=== PATIENT | male | born 1940 | race Caucasian/White ===

== ENCOUNTER 2018-03-06 08:50 | Emergency (ER) | payer OTHER, MEDICARE ==
[~2018-03-06] VITALS: Ht 182.9 cm; Wt 81.7 kg
[2018-03-06] MEDS ORDERED: CARDURA2 MG PO (09:17)
[2018-03-06] MEDS ORDERED: NORVASC5 MG PO (09:18)
[2018-03-06] MEDS ORDERED: HYDROCHLOROTHIA25 M2 PO (09:18)
[2018-03-06] MEDS ORDERED: PRINIVIL20 MG PO (09:18)
[2018-03-06] MEDS ORDERED: ASPIRIN325 PO (09:19)
[2018-03-06] MEDS ORDERED: VITAMIN D35000 UNI1 PO (09:19)
[2018-03-06] MEDS ORDERED: AVODART0.5 MG PO (09:20)
[2018-03-06] MEDS ORDERED: GARLIPURE600 MG PO (09:20)
[2018-03-06] MEDS ORDERED: TRAZODONE HCL50 MG PO (10:37)
[2018-03-06 11:02] VITALS: BP 137/66
== END 2018-03-06 11:03 | disposition home or self-care (01) ==
LOC: ER 08:50
DX: G47.00 Insomnia, unspecified (principal)

== ENCOUNTER 2018-03-13 07:09 | Emergency (ER) | payer OTHER, MEDICARE ==
[~2018-03-13] VITALS: Ht 182.9 cm; Wt 81.7 kg
--- NOTE | ~2018-03-13 | EKG ---
[place] [address] [facility] [place] [address] ELECTROCARDIOGRAM REPORT Name: ADOLPH SANCHEZ Room #: REG [facility] TE[facility]ACHAPIDilipDilip#: [id number] Admission: 03/13/18 Attend Phys: Discharge: Date of : 44 Report #: [id number] THIS REPORT FOR: //name// [facility] ED Test Date: 2018-03-13 Test Time: 07:35:49 Pat Name: ADOLPH SANCHEZ Department: Room: Gender: Customer Assistance Representative: KF : 1940 Requested By: Kina Fung Order Number: [id number] MD: Mark Dhaliwal Measurements Intervals O'Brien Rate: 68 P: OK: QRS: -32 QRSD: 149 T: 98 QT: 450 QTc: 479 Interpretive Statements Sinus rhythm with first-degree AV block Left bundle branch block No previous ECG available for comparison Electronically Signed On 03-13-2018 11:51:01 CDT by Mark Dhaliwal [email or web address] <ELECTRONICALLY SIGNED> By: Mark Dhaliwal MD, [facility] 03/13/18 1151 [id number] Mark Dhaliwal MD, FACC /EPI
[~2018-03-13 07:09] MED LIST: ASPIRIN325 PO; AVODART0.5 MG PO; CARDURA2 MG PO; GARLIPURE600 MG PO; HYDROCHLOROTHIA25 M2 PO; NORVASC5 MG PO; PRINIVIL20 MG PO; TRAZODONE HCL50 MG PO; VITAMIN D35000 UNI1 PO
[2018-03-13 07:44] LABS: ABSOLUTE NEUTROPHILS 6.9 thou/uL (1.4-8.2); BASOPHILS 0.6 % (0.0-2.0); EOSINOPHILS 0.6 % (0.0-3.0); HEMATOCRIT 38.2 % (42.0-52.0); HEMOGLOBIN 13.3 gm/dL (14.0-18.0); LYMPHOCYTES 11.7 % (24.0-44.0); MCH 31.8 pg (26.0-34.0); MCHC 34.8 g/dL (28.0-37.0); MCV 91.2 fL (80.0-100.0); MONOCYTES 5.6 % (1.0-8.0); PLATELET COUNT 175 thou/uL (150-400); POLYS 81.5 % (36.0-66.0); RBC 4.19 mil/uL (4.50-6.00); RDW 13.5 % (10.5-14.5); WBC 8.5 thou/uL (4.0-11.0)
[2018-03-13 08:00] LABS: ANION GAP 0 mmol/L (7-16); BUN 20 mg/dL (7-18); CALCIUM 8.8 mg/dL (8.5-10.1); CHLORIDE 100 mmol/L (98-107); CO2 30 mmol/L (21-32); CREATININE 1.1 mg/dL (0.7-1.3); GLUCOSE 110 mg/dL (74-106); POTASSIUM 3.6 mmol/L (3.5-5.1); SODIUM 130 mmol/L (136-145)
[2018-03-13 08:03] LABS: TROPONIN-I <0.06 ng/mL (<0.06)
[2018-03-13 08:27] LABS: AMP/METHAMP Negative (Negative); BARBITURATES Negative (Negative); BENZODIAZEPINES Negative (Negative); COCAINE Negative (Negative); METHADONE Negative (Negative); OPIATES Negative (Negative); PCP Negative (Negative)
[2018-03-13] MEDS ORDERED: REMERON15 MG PO (08:57)
[2018-03-13 14:00] VITALS: BP 114/74
== END 2018-03-13 16:32 ==
LOC: ER 07:09
PROVIDERS: Emergency Medicine
DX: R45.851 Suicidal ideations (principal); F41.9 Anxiety disorder, unspecified; I10 Essential (primary) hypertension; N40.0 Benign prostatic hyperplasia without lower urinary tract symptoms

== ENCOUNTER 2018-03-30 09:08 | Emergency (ER) | payer OTHER, MEDICARE ==
[~2018-03-30] VITALS: Ht 182.9 cm; Wt 81.7 kg
[~2018-03-30 09:08] MED LIST changes: +REMERON15 MG PO
[2018-03-30] MEDS ORDERED: ASPIR 8181 MG PO (09:25)
[2018-03-30] MEDS ORDERED: LEXAPRO 10 MG T10 M2 PO (09:25)
[2018-03-30] MEDS ORDERED: AMBIEN 5 MG TABL5 M1 PO (09:26)
[2018-03-30 10:12] LABS: ABSOLUTE NEUTROPHILS 5.4 thou/uL (1.4-8.2); BASOPHILS 0.6 % (0.0-2.0); EOSINOPHILS 0.2 % (0.0-3.0); HEMATOCRIT 37.9 % (42.0-52.0); HEMOGLOBIN 13.3 gm/dL (14.0-18.0); MCH 31.6 pg (26.0-34.0); MCV 90.4 fL (80.0-100.0); MONOCYTES 7.3 % (1.0-8.0); PLATELET COUNT 189 thou/uL (150-400); POLYS 79.9 % (36.0-66.0); RBC 4.19 mil/uL (4.50-6.00); RDW 13.8 % (10.5-14.5); WBC 6.7 thou/uL (4.0-11.0)
[2018-03-30 10:22] LABS: ANION GAP 5 mmol/L (7-16); BUN 18 mg/dL (7-18); CALCIUM 8.7 mg/dL (8.5-10.1); CHLORIDE 99 mmol/L (98-107); CO2 28 mmol/L (21-32); GLUCOSE 116 mg/dL (74-106); POTASSIUM 3.8 mmol/L (3.5-5.1); SODIUM 132 mmol/L (136-145)
[2018-03-30 10:29] LABS: ALBUMIN 3.7 g/dL (3.4-5.0); DIRECT BILIRUBIN 0.1 mg/dL (<0.1-0.3); SALICYLATE < 2.8 mg/dL (2.8-20.0); SGOT 18 U/L (15-37); SGPT 28 U/L (30-65); TOTAL BILIRUBIN 0.4 mg/dL (<0.1-1.0); TOTAL PROTEIN 6.9 g/dL (6.4-8.2)
[2018-03-30 10:30] LABS: AMP/METHAMP Negative (Negative); BARBITURATES Negative (Negative); BENZODIAZEPINES Negative (Negative); COCAINE Negative (Negative); METHADONE Negative (Negative); OPIATES Negative (Negative); PCP Negative (Negative)
[2018-03-30 18:53] VITALS: BP 120/93
== END 2018-03-30 18:55 ==
LOC: ER 09:08
PROVIDERS: Emergency Medicine
DX: R45.851 Suicidal ideations (principal); I10 Essential (primary) hypertension